=== PATIENT | female | born 1975 | race Caucasian/White ===

== ENCOUNTER 2019-09-13 11:08 | Day surgery (SDC) | payer SELFPAY ==
[2019-09-13 11:24] VITALS: BMI 30.9
[2019-09-13] MEDS ORDERED: hydrALAZINE 20 MG/ML VIAL SLOW IVP PRN (11:49)
--- NOTE | 2019-09-13 12:28 | PDOC.FPROB ---
FMR OB H&P: HPI - History of Present Illness Chief Complaint: elevated BP's History of Present Illness: 43 y/o @ 36.4 wks dated by 9.4 week sono c/w LMP. Presents to L&D from [facility] for elevated BP reading of 142/80. Pt had a 137/90 BP last night. She brings her BP log and her BP's have been 100-110's/70's. Pt denies FLOYD, abd pain, scotomas, CP, palpitations. States she has edema in her feet worse at night. + FM Denies LOF, vag bleeding and vag discharge. Primary Care Physician: Dr. Clay at [facility]. FMR OB H&P: Current - Care : 5 Para: 4 Gestational age: 36.4 Due date: 10/07/19 Dating Criteria: 9.4 wk sono c/w LMP Course/Complications: cHTN JAY-I exposure in 1st Trimester Advanced maternal age anemia of Hadlock 91%, EFW 2794 g - OB Labs Blood type: O RH: positive Antibody Screen: negative HIV: negative RPR: negative HepBsAg: negative Rubella: immune Urine drug screen: not done Gonorrhea: negative Chlamydia: negative Pap Smear: NILM 11/2016 1 hour gtt: 130 3 hour GTT: 134, 122 A1c: 5.2% GBS: unknown H&H: 11.6/33.8 on 08/23/19 Additional labs: Progenity on 04/15/20: Normal. - First Trimester Ultrasound First trimester: 9.4 wk dating sono c/w LMP - Anatomy Survey Anatomy survey: 05/25 S>D, unable to rule out trisomy Repeated on 07/08 hadlock of 89.1%, posterior placenta. - Additional Ultrasound Additional: 08/05: EFW 96.8% 08/25: concern for LGA, hadlock 91%, BPP 8/. 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 - Family History Family History: HTN denies congenital problems. FMR OB H&P: Medications - Current Home Medications: Medication Instructions Recorded Confirmed Type Vitamin 1 tab PO DAILY 10/24/16 10/24/16 History Ferrous Sulfate [Iron] 325 mg PO 09/13/19 History Allergies/Adverse Reactions: Allergies Allergy/AdvReac Type Severity Reaction Status Date / Time No Known Allergies Allergy Verified 09/13/19 11:17 FMR OB H&P: ROS - Review of Systems General: denies: fever/chills, weight/appetite/sleep changes Eyes: denies: vision changes, double vision, scotomas, floaters ENT: denies: nasal congestion, sore throat Cardiovascular: reports: edema (feet at night.). denies: chest pain, palpitation Respiratory: denies: cough, shortness of breath Gastrointestinal: denies: abdominal pain, cramping, nausea, vomiting, diarrhea Genitourinary (Female): denies: dysuria, vaginal discharge, vaginal pain, vaginal bleeding, contractions Musculoskeletal: denies: pain Neurologic: denies: numbness, syncope, seizures, headache Integumentary: denies: rash Hematologic/Lymphatic: denies: prolonged or excessive bleeding, enlarged lymph nodes FMR OB H&P: Vital Signs - Maternal Vital signs: BP 118/72 HR 90 FHT's 130 baseline and reactive. No ctx on toco. - Heart Tones Baseline: 130 (Nursing staff notified to call with any concerns or changes in the strip. ) Variability: moderate Acceleration: present (several 15 X 15 observed.) [place] contractions every: none FMR OB H&P: Physical Exam - Physical Exam General: NAD, awake, alert and oriented HEENT: normocephalic and atraumatic, PERRLA, EOMI, MMM, conjunctiva clear, no scleral icterus, grossly normal vision, grossly normal hearing, oropharynx clear , good dention Neck: supple, FROM, trachea midline, no LAD, no JVD Chest: non-tender to palpation, no lesions Breast: symmetric Heart: RRR, normal S1/S2, no murmurs/rubs/gallops, pulses present, no edema General: CTAB, no respiratory distress, good air movement, no rales/rhonchi, no wheezing, no retractions Abdomen: soft, gravid, non-tender, bowel sound present, no masses, no hernias Musculoskeletal: normal gait and station, pulses present, no misalignment/ asymmetry, no atrophy Neurological: cranial nerves II through XII intact, sensation to pain,touch and proprioception grossly normal, no clonus, no tremor, no focal deficit Skin: no rash, good tugor, capillary refill <2 seconds, no jaundice Lymphatic: no unusual bruising or bleeding, no purpura, no petechia, no LAD Psychiatric: intact recent and remote memory, good judgement and insight, normal mood and affect - Pelvic Exam Vulva: normal hair distribution, appropriate saroj stage Estimated Weight: other (2794 g on 08/26/19) FMR OB H&P: A/P - Problem List (1) Normal intrauterine in third trimester Current Visit: Yes Status: Acute Code(s): Z34.93 - ENCNTR FOR SUPRVSN OF NORMAL PREG, UNSP, THIRD TRIMESTER (2) Chronic hypertension Current Visit: Yes Status: Acute Code(s): I10 - ESSENTIAL (PRIMARY) HYPERTENSION (3) Anemia affecting Current Visit: Yes Status: Acute Code(s): O99.019 - ANEMIA COMPLICATING , UNSPECIFIED TRIMESTER (4) Advanced maternal age (AMA), 40 years or greater Current Visit: Yes Status: Acute Code(s): [id number] - Discussion: Date/Time: 09/13/19 1226 43 y/o , @ 36.4 wks dated by 9.4 wk sono c/w LMP, presents to L&D for elevated BP's. 1. IUP @ 36.4 wks - due for testing today. Ordered BPP and NST - monitoring has been baseline FHT's 130, with 15X15 reactivity present. - Nursings staff agreeable to notifying MD with any abnormalities and concern. - Blood type O+, AB -. - GBS unknown. 2. cHTN, rule out Pre-E - elevated BP readings at home and PNC. - Ordered Urine Protein and urine creatinine - Ordered CBC, CMP - Q15 min BP readings. 3. Anemia of - CBC ordered - H/H on 08/22, 11.6/33.8 4. JAY-I exposure in 1st trimester - Anatomy scans have been normal anatomy 5. FHx of HTN - PRE-E labs and BP monitoring 6. Hadlock 91% - EFW on 08/25, 2794 g. - repeat BPP today with EFW. BPP 01/21 today. 7. Advanced Maternal Age - Progenity screen was normal on 04/15/20. This H&P was discussed with Dr. Castro and Dr. Beaulieu who agree with the above documentation and plan. Addendum - Attending - Attending Attestation Date/Time: 09/13/19 4771 I personally evaluated the patient and discussed the management with Dr. Palma and team. I agree with the History, Examination, Assessment and Plan documented above with any addition or exceptions noted below. Patient well known to me from clinic. She is feeling great, +FM. Her pressures have all been markedly less than 140/90. BPP 03/25. Labs all reassuring. GBS collected in clinic today. Plan for dc with return precautions in detail.
[2019-09-13 12:30] LABS: #Lymphocytes 1.8 thou/uL (1.20-3.40); #Monocytes 0.4 thou/uL (0.11-0.59); #Neutrophils 5.9 thou/uL (1.40-6.50); %Basophils 0.5 % (0.0-1.0); %Eosinophils 0.3 % (0.0-10.0); %Lymphocytes 21.5 % (21.0-51.0); %Monocytes 4.5 % (0.0-10.0); %Neutrophils 73.1 % (42.0-75.0); Mean Corpuscular HGB CONC 34.8 g/dL (32.0-36.0); Mean Corpuscular Hemoglobin 31.8 pg (27.0-31.0); Mean Corpuscular Volume 91.5 fL (78.0-98.0); Mean Platelet Volume 7.9 fL (7.4-10.4); Platelet Count 157 thou/uL (130-400); RBC Distribution Width 12.3 % (11.5-14.5); Red Blood Cell (RBC) Count 3.76 mill/uL (4.20-5.40); White Blood Cell (WBC) Count 8.1 thou/uL (4.8-10.8)
[2019-09-13 12:50] LABS: Creatinine, Urine Less than 20.00 mg/dL (47-110); Protein, Urine Random Quant Less than 10 mg/dL (1-14)
[2019-09-13 12:53] LABS: ALT (SGPT) 10 U/L (8-55); AST (SGOT) 16 U/L (5-34); Albumin 3.6 g/dL (3.5-5.0); Alkaline Phosphatase 111 U/L (40-110); Anion Gap 13 mmol/L (10-20); BUN (Urea Nitrogen) 7 mg/dL (7.0-18.7); Bilirubin, Total 0.6 mg/dL (0.2-1.2); Calc. Creatinine Clearance 170 mL/min (70-130); Calcium 9.1 mg/dL (7.8-10.44); Carbon Dioxide 21 mmol/L (22-29); Chloride 106 mmol/L (98-107); Estimated GFR-MDRD Greater than 90; Globulin 3.5 g/dL (2.4-3.5); Glucose 73 mg/dL (70-105); Protein, Total 7.1 g/dL (6.0-8.3); Sodium 136 mmol/L (136-145)
--- NOTE | 2019-09-13 13:03 | ULT ---
ULTRASOUND BIOPHYSICAL PROFILE: HISTORY: distress, hypertension FINDINGS: A single live intrauterine gestation is seen. heart rate:116bpm YUDI: 13.8 cm Placenta: Posterior without placenta previa OB biophysical profile: tone: 2 breathin movements: 2 Amniotic fluid: 2 IMPRESSION: The ultrasound biophysical profile score is 8 out of 8.
--- NOTE | 2019-09-13 13:40 | PDOC.BPN ---
- Brief Progress Note BP's within normal limits. BPP 8/8. cardiac monitoring Reactive with multiple 15X15's. Urine pro <10 Urine cr <20 Plt 157
--- NOTE | 2019-09-13 14:20 | PDOC.BPN ---
<Chikis Palma - Last Filed: 09/13/19 14:16> - Brief Progress Note Prolonged decel occurred approximately 13:30. BPP 8/8, with NST reactive. This gives a 06/999 risk of morbidity/mortality to fetus in one week. Recommended to f/u with [facility] for weekly testing/BPP until delivery. Pt to be scheduled at 39 weeks for induction due to cHTN. BP's have been normal during time observed at L&D. Pt understands return precautions of FLOYD, abd pain, increased BP >140/90, and LOF , Ctx, vag bleeding. Plans of care discussed with Dr. Castro, who is in agreement of stated discharge plan. <Ayad Castro - Last Filed: 09/15/19 10:12> Addendum - Attending - Attending Attestation Date/Time: 09/15/19 1012 I personally evaluated the patient and discussed the management with Dr. Palma. I agree with the History, Examination, Assessment and Plan documented above with any addition or exceptions noted below. <06/999. No evidence at all of hypertensive disease during prolonged monitoring.
== END 2019-09-13 14:26 | disposition home or self-care (01) ==
LOC: L&D/OP 11:08
PROVIDERS: ATTEND Emergency Medicine
DX: O10.913 Unspecified pre-existing hypertension complicating pregnancy, third trimester (principal); O09.523 Supervision of elderly multigravida, third trimester; O99.013 Anemia complicating pregnancy, third trimester; D64.9 Anemia, unspecified; Z3A.36 36 weeks gestation of pregnancy; Z79.899 Other long term (current) drug therapy
CPT/HCPCS: 36415; 76819; 80053; 82570; 84156; 85025; 99283

== ENCOUNTER 2019-09-23 12:37 | Day surgery (SDC) | payer SELFPAY ==
[2019-09-23 12:48] VITALS: BMI 32.4
--- NOTE | 2019-09-23 13:38 | PDOC.FPROB ---
FMR OB H&P: HPI - History of Present Illness Chief Complaint: Elevated BP Indentification: at 38W EGA by 9.4W US, c/w LMP History of Present Illness: Patient is a 43 y/o female at 38.4W EGA by 9.4W US, which was c /w LMP, who presents to L&D from clinic after she recorded two elevated BPs. Per her provider, she recorded to BPs of 140/82 and 148/85, although a third BP was measured at 132/83. An SVE performed at the time was reported as 1/Thick High (Posterior), and an NST performed prior to arrival was reactive. Her as been complicated by concern of LGA, with her most recent imaging revealing an EFW of 2794g and a HADLOCK of 91%. She has had adequate care up until this point, and with the exception of testing GBS(+), all other lab results have been negative. At this time she denies any worrisome symptoms such as fevers, chills, N/V/C, FLOYD , visual disturbances, floaters, loss of vision, seizures, RUQ pain, peripheral edema, loss of fluids, loss of movement, or persistent contractions. She denies any known sick contacts or COVID-19(+) contacts, and she has had no recent travel. Patient is Upper Sorbian-speaking only and her son, who was at bedside at the time of evaluation, assisted with much of the interpretation. 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 denies: fever/chills, recent trauma Eyes: denies: vision changes, scotomas, floaters ENT: denies: rhinorrhea, frequent nose bleed, ear pain Cardiovascular: denies: chest pain Respiratory: denies: cough Gastrointestinal: reports: diarrhea (Patient reports 1 episode of diarrhea on 09/23/19). denies: abdominal pain, cramping, nausea, vomiting, constipation, bright red blood Genitourinary (Female): denies: dysuria, hematuria, polyuria, vaginal discharge , vaginal pain, vaginal bleeding, vaginal mass/sore, contractions, vaginal pressure Musculoskeletal: reports: stiffness, arthritis/arthralgias. denies: pain Neurologic: denies: seizures, headache Integumentary: denies: itching, rash, lesions Psychological: denies: depression, anxiety FMR OB H&P: Vital Signs - Maternal Vital signs: HR [69] BP [130/60] RR [--] O2%Sat [--] T[--] Note: Most elevated BP since admission to L&D was 137/78. - Heart Tones Baseline: 120 Variability: moderate Acceleration: present Deceleration: absent Category: category 1 [place] contractions every: 1 CTX noted since Admission FMR OB H&P: Physical Exam - Physical Exam General: NAD, awake, alert and oriented HEENT: normocephalic and atraumatic, PERRLA, EOMI, MMM, conjunctiva clear, no scleral icterus, grossly normal vision, grossly normal hearing, normal nasal mucosa, oropharynx clear, good dention Neck: supple, FROM, trachea midline, no LAD Chest: non-tender to palpation, no lesions Breast: symmetric Heart: RRR, normal S1/S2, no murmurs/rubs/gallops, pulses present, no edema General: CTAB, no respiratory distress, good air movement, no rales/rhonchi, no wheezing, no retractions Abdomen: gravid, non-tender Musculoskeletal: pulses present, FROM in all four extremities, no misalignment/ asymmetry, no atrophy Neurological: sensation to pain,touch and proprioception grossly normal Skin: no rash, capillary refill <2 seconds, no jaundice Lymphatic: no unusual bruising or bleeding, no purpura, no petechia, no LAD Psychiatric: intact recent and remote memory, good judgement and insight, normal mood and affect FMR OB H&P: A/P - Problem List (1) Elevated blood pressure affecting in third trimester, antepartum Current Visit: Yes Status: Acute Code(s): O16.3 - UNSPECIFIED MATERNAL HYPERTENSION, THIRD TRIMESTER (2) Advanced maternal age (AMA), 40 years or greater Current Visit: No Status: Chronic Code(s): [id number] - (3) Chronic hypertension Current Visit: No Status: Chronic Code(s): I10 - ESSENTIAL (PRIMARY) HYPERTENSION (4) Normal intrauterine in third trimester Current Visit: No Status: Acute Code(s): Z34.93 - ENCNTR FOR SUPRVSN OF NORMAL PREG, UNSP, THIRD TRIMESTER (5) Term Current Visit: No Status: Acute Code(s): Z34.80 - ENCOUNTER FOR SUPRVSN OF NORMAL , UNSP TRIMESTER Disposition: Patient is a 43 y/o at 38W EGA by 9.4W US c/w LMP who presents to L&D after multiple elevated BP readings in clinic. 1. Elevated BP, 3rd Trimest of -Patient recorded 2 elevated BPs in clinic and has subsequently been sent over for additional work-up -ROS negative w/o worrisome symptoms such as FLOYD, visual disturbances, RUQ pain or peripheral edema -Physical Exam unremarkable -Maternal VSS w/o elevated BP readings since admission to L&D -1 contraction noted on monitor - patient denies loss of fluid, loss of movement, or additional contractions -FHTs in the 120s w/ accelerations present, no decels present -Hemagram: Pending -CMP: Pending -Urine Protein: Pending -Urine Creatinine: Pending 2. cHTN -Patient had previously been taking ACEi prior to discovering she was -PNC recommended ASA use until delivery - patient not currently taking ASA as prescribed -Review of BP log demonstrated no elevated BPs in past 30 days -See #1 3. AMA -Progenity Screen (04/15/19): WNL -Will order BPP and Growth US at this time -NST performed in clinic was reported as reactive. 4. LGA, Suspected -Per chart review, multiple imaging reports have demonstrated a HADLOCK > 90% -Will alter plan accordingly if IOL is indicated 5. GBS Positive -Will ensure adequate prophylaxis if IOL is indicated 6. ACEi Exposure during 1st Trimester of -Multiple imaging reports have demonstrated no gross abnormalities -Continue to monitor PCP: [facility] - Dr. Jocelyn Clay Dispo: Patient is currently stable on L&D for evaluation of elevated blood BP - r/o Pre-Eclampsia. Await lab and imaging results as per above and tailor plan of care as indicated. Discussion: Date/Time: 09/23/19 4843 This H&P was discussed with [] and [] who agree with the above documentation and plan. Addendum - Attending - Attending Attestation Date/Time: 09/23/19 1694 I personally evaluated the patient and discussed the management with Dr. Ricketts I agree with the History, Examination, Assessment and Plan documented above with any addition or exceptions noted below - 43 yo @38 0/7 weeks with h/o cHTN sent from clinic due to elevated BP. Denies any FLOYD, visual changes, ctx , LOF. VB. (+) FM. Afebrile VSS BP 100-135/70-80s. CMP, hemagram, and urine Pr/ Cr ratio normal. Category 1 FHTs. A/P: 1) IUP@38 0/7 weeks with cHTN - no evidence of superimposed pre-eclampsia. Normal growth and YUDI. D/C home with precautions. Patient scheduled for induction on September 24 at 7:15PM
[2019-09-23] MEDS ORDERED: hydrALAZINE 20 MG/ML VIAL SLOW IVP PRN (13:39)
[2019-09-23 14:06] LABS: Hemoglobin 12.1 g/dL (12.0-16.0); Mean Corpuscular HGB CONC 34.8 g/dL (32.0-36.0); Mean Corpuscular Hemoglobin 31.9 pg (27.0-31.0); Mean Corpuscular Volume 91.9 fL (78.0-98.0); Mean Platelet Volume 7.8 fL (7.4-10.4); Platelet Count 156 thou/uL (130-400); RBC Distribution Width 12.4 % (11.5-14.5); Red Blood Cell (RBC) Count 3.78 mill/uL (4.20-5.40)
[2019-09-23 14:26] LABS: ALT (SGPT) 8 U/L (8-55); AST (SGOT) 14 U/L (5-34); Albumin 3.6 g/dL (3.5-5.0); Alkaline Phosphatase 124 U/L (40-110); Anion Gap 13 mmol/L (10-20); BUN (Urea Nitrogen) 10 mg/dL (7.0-18.7); Bilirubin, Total 0.6 mg/dL (0.2-1.2); Calc. Creatinine Clearance 167 mL/min (70-130); Calcium 9.2 mg/dL (7.8-10.44); Carbon Dioxide 21 mmol/L (22-29); Chloride 106 mmol/L (98-107); Estimated GFR-MDRD Greater than 90; Globulin 3.5 g/dL (2.4-3.5); Glucose 93 mg/dL (70-105); Potassium 3.6 mmol/L (3.5-5.1); Protein, Total 7.1 g/dL (6.0-8.3); Sodium 136 mmol/L (136-145)
--- NOTE | 2019-09-23 14:44 | ULT ---
Exam: Nonstress biophysical profile HISTORY: Hypertension. COMPARISON: None. TECHNIQUE: Nonstress biophysical profile was performed. FINDINGS: position: Vertex heart tones: 125 bpm Amniotic fluid index: 12.9 cm Biometry: BPD 9.75 cm, 39 weeks 6 days Head circumference 34.50 cm, 39 weeks 6 days Abdominal circumference 35.01 cm, 38 weeks 6 days Femur length 7.13 cm, 36 weeks 4 days position: Vertex. Placental location: Posterior. Nonstress biophysical profile: tone 2 breathing 2 movement 2 Amniotic fluid 2 Total score 8 out of 8 IMPRESSION: Nonstress biophysical profile total score is 8 out of 8. Transcribed Date/Time: 09/23/2019 2:59 PM
== END 2019-09-23 15:37 | disposition home or self-care (01) ==
LOC: L&D/OP 12:37
PROVIDERS: ATTEND Family Medicine
DX: O09.523 Supervision of elderly multigravida, third trimester (principal); O16.3 Unspecified maternal hypertension, third trimester; Z3A.38 38 weeks gestation of pregnancy
CPT/HCPCS: 36415; 76815; 76819; 80053; 82570; 84156; 85027

== ENCOUNTER 2019-09-25 19:15 | Inpatient (IN) | payer MEDICAID, OTHER, SELFPAY ==
[~2019-09-25 19:15] MED LIST: Bupivacaine/Epinephrine 0.25% 30 ML VIAL ONE
[2019-09-25] MEDS ORDERED: Lidocaine 1% (PF) 30 ML VIAL SC PRN (19:38)
[2019-09-25] MEDS ORDERED: Ondansetron PF 4 MG/2 ML Vial IVP PRN (19:38)
[2019-09-25] MEDS ORDERED: Promethazine HCl 25 MG/ML VIAL IM PRN (19:38)
[2019-09-25] MEDS ORDERED: NS / Oxytocin 40 units/1000ml 1,000 ML IV PRN (19:38)
[2019-09-25] MEDS ORDERED: hydrALAZINE 20 MG/ML VIAL SLOW IVP PRN (19:38)
--- NOTE | 2019-09-25 19:42 | PDOC.FPROB ---
FMR OB H&P: HPI - History of Present Illness Chief Complaint: medically indicated IOL Indentification: at 38.2 wks by 9.2 wk sono History of Present Illness: 43 yo at 38.2 wks by 9.2 wk sono here for medically indicated IOL for cHTN. Endorses FM, denies VD/VD/LOF. Reports BP well controlled at home, lost shows BPs 110s/80s. Denies FLOYD, vision changes, chest pain, LE swelling. No other concerns at this time. Primary Care Physician: [facility]-Dr. 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: Denies - Surgical History Sx History: Denies - Social History Social History: Denies TAD - Family History Family History: HTN in family FMR OB H&P: Medications - Current Home Medications: Medication Instructions Recorded Confirmed Type Vitamin 1 tab PO DAILY 10/24/16 09/25/19 History Ferrous Sulfate [Iron] 325 mg PO DAILY 09/13/19 09/25/19 History Allergies/Adverse Reactions: Allergies Allergy/AdvReac Type Severity Reaction Status Date / Time No Known Allergies Allergy Verified 09/13/19 11:17 FMR OB H&P: ROS - Review of Systems General: denies: fever/chills, weight/appetite/sleep changes ENT: denies: nasal congestion, rhinorrhea, ear pain Cardiovascular: denies: chest pain, palpitation Respiratory: denies: cough, congestion, shortness of breath Gastrointestinal: denies: abdominal pain, indigestion, cramping, nausea Genitourinary (Female): denies: vaginal pain, vaginal bleeding, vaginal pressure Musculoskeletal: denies: pain, stiffness Neurologic: denies: seizures, weakness Endocrine: denies: cold intolerance, heat intolerance Psychological: denies: depression, anxiety FMR OB H&P: Vital Signs - Maternal Vital signs: BPs all within normal limits - Heart Tones Baseline: 130 Variability: moderate Acceleration: present Deceleration: absent Category: category 1 [place] contractions every: 2-4min FMR OB H&P: Physical Exam - Physical Exam General: NAD, awake, alert and oriented HEENT: normocephalic and atraumatic, EOMI, MMM, conjunctiva clear, no scleral icterus, grossly normal hearing, good dention Neck: supple, FROM, trachea midline General: no respiratory distress, good air movement Abdomen: soft, gravid, non-tender Musculoskeletal: pulses present, FROM in all four extremities Neurological: cranial nerves II through XII intact Skin: capillary refill <2 seconds Lymphatic: no unusual bruising or bleeding, no purpura Psychiatric: intact recent and remote memory, good judgement and insight - Pelvic Exam Vulva: normal hair distribution SVE: 370/-2 Chua score: 7 Presentation: Vertex FMR OB H&P: A/P - Problem List (1) Anemia affecting Status: Acute Code(s): O99.019 - ANEMIA COMPLICATING , UNSPECIFIED TRIMESTER (2) Elevated blood pressure affecting in third trimester, antepartum Status: Acute Code(s): O16.3 - UNSPECIFIED MATERNAL HYPERTENSION, THIRD TRIMESTER (3) Advanced maternal age (AMA), 40 years or greater Status: Chronic Code(s): [id number] - (4) Chronic hypertension Status: Chronic Code(s): I10 - ESSENTIAL (PRIMARY) HYPERTENSION Discussion: Date/Time: 09/25/191939 PCP: Pavithra History: OB hx: AMA, cHTN, JAY-I exposure first trimester PMH: HTN PSH: neg Meds: PNV All: NKDA Soc Hx: denies smoking, alcohol, drugs Fam Hx: denies downs, congenital defects GBS: + Blood type: O+ Ab screen: neg HIV: neg RPR: neg Hep B: neg Rubella: immune NIPT: neg GC/CT: neg REVIEW OF SYSTEMS: Gen: no fever, chills, or sweats Neuro: no numbness/tingling, no weakness, denies headache ENT: denies congestion Eyes: no visual changes Resp: denies cough, no production, no SOB, no wheeze Card: denies chest pain, no palpitations GI: denies nausea, vomiting, diarrhea : no dysuria, no hematuria Skin: no rash, no erythema Psych: denies hx anxiety/depression Vitals: T: 98.5 R: 18 BP: 123/84 P:67 at: 98% on RA PHYSICAL EXAMINATION: General: NAD, alert and oriented x3 HEENT: EOMI, normal sclera Neck: Supple. Full ROM. Heart/Cardiovascular System: RRR, Cap refill < 3 seconds, no rub, no murmur Lungs/Respiratory System: clear to auscultation bilaterally. No increased work of breathing. Room air. Abdomen/Gastro-Intestinal System: no abdominal tenderness, normal bowel sounds, Gravid Extremities: Warm extremities. No cyanosis or edema. Neuro: No gross deficits appreciated Psychiatry: Awake, Alert and cooperative with exam Skin: no lesions, no rashes Musculoskeletal: Full ROM A/P: This is a 43 yo 38w here for induction 2/2 cHTN # - SVE: /-2, Chua 7 - After adequate dosing of PCN will start pitocin - Recheck in 4 hours - FHT: Cat I, intermittent CTX - Vertex on bedside sono #GBS+ -PCN ppx # cHTN -No meds, monitor BP # LGA -91% at 34 wks # AMA -NIPT neg # Anemia of Addendum - Attending - Attending Attestation Date/Time: 09/25/192102 I personally evaluated the patient and discussed the management with Dr. Hampton I agree with the History, Examination, Assessment and Plan documented above with any addition or exceptions noted below. IOL for cHTN and AMA. Pit after GBS x2 dose.
[2019-09-25] MEDS ORDERED: Penicillin G Potassium 5 MILL.UNITS in Sodium Chloride 0.9% 100 ML IVPB SCH (20:00)
[2019-09-25 20:02] VITALS: BMI 31.9
[2019-09-25 20:25] LABS: Mean Corpuscular HGB CONC 36.2 g/dL (32.0-36.0); Mean Corpuscular Hemoglobin 33.3 pg (27.0-31.0); Mean Corpuscular Volume 92.2 fL (78.0-98.0); Mean Platelet Volume 8.5 fL (7.4-10.4); Platelet Count 138 thou/uL (130-400); RBC Distribution Width 12.3 % (11.5-14.5); Red Blood Cell (RBC) Count 3.58 mill/uL (4.20-5.40); White Blood Cell (WBC) Count 9.9 thou/uL (4.8-10.8)
[2019-09-25 21:07] LABS: Syphilis Antibody Nonreactive (Nonreactive); Syphilis Antibody Index 0.13 S/CO (<1.00 Non-Reactive)
[2019-09-25 23:41] LABS: HBSAg Index 0.18 S/CO (0-0.99); Hep B Surf Ag Non-Reactive S/CO (NonReactive)
[2019-09-26] MEDS: Lactated Ringer's 1,000 ML IV SCH ×2 (00:45→02:36)
[2019-09-26] MEDS: Penicillin G 2.5 MILL.units 2.5 MILL.UNITS in Premix Bag 1 BAG IVPB SCH ×3 (00:45→08:23)
[2019-09-26] MEDS ORDERED: Fentanyl 4 mcg/Bup 0.1% Cadd 100 ML ONE (02:00)
[2019-09-26] MEDS ORDERED: Fentanyl 4 mcg/Bupivacaine 0.1% Cassette 100 ML EPIDURAL SCH (02:15)
[2019-09-26] MEDS ORDERED: Ondansetron PF 4 MG/2 ML Vial IVP PRN (02:15)
[2019-09-26] MEDS ORDERED: Acetaminophen 325 MG TAB PO PRN (02:15)
[2019-09-26] MEDS ORDERED: EPHEDRINE 25 MG/5 ML SYRINGE SLOW IVP PRN (02:15)
[2019-09-26] MEDS ORDERED: Promethazine HCl 25 MG/ML VIAL IM PRN (02:15)
[2019-09-26] MEDS ORDERED: Naloxone HCl 0.4 mg/ml Vial IVP PRN ×2 (02:15)
[2019-09-26] MEDS ORDERED: Lactated Ringer's 500 ML IV PRN (02:15)
[2019-09-26] MEDS ORDERED: diphenhydrAMINE 50 MG/ML VIAL IVP PRN (02:15)
[2019-09-26] MEDS ORDERED: Communication Order-Pharmacy FS SCH (02:15)
--- NOTE | 2019-09-26 02:15 | PDOC.LDPN ---
Labor & Delivery Progress Note - Subjective Subjective: comfortable - Objective Vital signs reviewed and normal: yes - Assessment (1) Anemia affecting Code(s): O99.019 - ANEMIA COMPLICATING , UNSPECIFIED TRIMESTER Current Visit: No Status: Acute (2) Elevated blood pressure affecting in third trimester, antepartum Code(s): O16.3 - UNSPECIFIED MATERNAL HYPERTENSION, THIRD TRIMESTER Current Visit: No Status: Acute (3) Advanced maternal age (AMA), 40 years or greater Code(s): [id number] - Current Visit: No Status: Chronic (4) Chronic hypertension Code(s): I10 - ESSENTIAL (PRIMARY) HYPERTENSION Current Visit: No Status: Chronic -: This is a 43 yo 38w here for induction 2/2 cHTN # - SVE: /-2 @ 2011 - SVE /2 @ 0200 - FHT: Cat I, q5-6 ctx - baseline 110, good variability and accels #GBS+ -adequate ppx # cHTN -no severe range BPs # LGA -91% at 34 wks # AMA -NIPT neg # Anemia of
[2019-09-26] MEDS ORDERED: NS w/ Oxytocin 10 units 500 ML ONE (02:47)
[2019-09-26] MEDS ORDERED: NS w/ Oxytocin 10 units 500 ML IV SCH ×2 (03:00)
--- NOTE | 2019-09-26 03:14 | PDOC.BPN ---
- Brief Progress Note Patient with multiple elevated blood pressures, SBP 150s, 180. Patient denies FLOYD, RUQ pain, vision changes, new LE swelling. Discussed obtaining CBC, CMP, urine Pr/Cr to rule out preE. Patient in agreement with plan. Epidural in place , comfortable.
[2019-09-26 03:40] LABS: #Lymphocytes 2.7 thou/uL (1.20-3.40); #Monocytes 0.5 thou/uL (0.11-0.59); #Neutrophils 6.3 thou/uL (1.40-6.50); %Basophils 0.2 % (0.0-1.0); %Eosinophils 0.3 % (0.0-10.0); %Monocytes 5.2 % (0.0-10.0); %Neutrophils 66.3 % (42.0-75.0); Hemoglobin 11.3 g/dL (12.0-16.0); Mean Corpuscular HGB CONC 34.4 g/dL (32.0-36.0); Mean Corpuscular Hemoglobin 31.8 pg (27.0-31.0); Mean Corpuscular Volume 92.4 fL (78.0-98.0); Mean Platelet Volume 8.1 fL (7.4-10.4); Platelet Count 132 thou/uL (130-400); RBC Distribution Width 12.4 % (11.5-14.5); Red Blood Cell (RBC) Count 3.55 mill/uL (4.20-5.40); White Blood Cell (WBC) Count 9.5 thou/uL (4.8-10.8)
[2019-09-26 03:59] LABS: ALT (SGPT) 9 U/L (8-55); AST (SGOT) 15 U/L (5-34); Albumin 3.3 g/dL (3.5-5.0); Alkaline Phosphatase 119 U/L (40-110); Anion Gap 12 mmol/L (10-20); BUN (Urea Nitrogen) 9 mg/dL (7.0-18.7); Bilirubin, Total 0.5 mg/dL (0.2-1.2); Calc. Creatinine Clearance 179 mL/min (70-130); Calcium 8.9 mg/dL (7.8-10.44); Carbon Dioxide 21 mmol/L (22-29); Chloride 107 mmol/L (98-107); Estimated GFR-MDRD Greater than 90; Globulin 3.1 g/dL (2.4-3.5); Glucose 78 mg/dL (70-105); Potassium 3.4 mmol/L (3.5-5.1); Protein, Total 6.4 g/dL (6.0-8.3); Sodium 137 mmol/L (136-145)
[2019-09-26 04:05] LABS: Protein, Urine Random Quant Less than 10 mg/dL (1-14)
--- NOTE | 2019-09-26 05:19 | PDOC.LDPN ---
Labor & Delivery Progress Note - Subjective Subjective: comfortable - Objective Vital signs reviewed and normal: yes Abnormal vital signs: SBP 130/140's General: NAD SVE: /-2 Plan: continue plan of care -: This is a 43 yo 38w here for induction 07/18 cHTN # - SVE: /-2 @ 2011 - SVE /-2 @ 020 - SVE 2 @ 0500 - will consider artificial rupture of membranes - FHT: Cat I, q5-6 ctx - baseline 110, good variabillity, accels #GBS+ -adequate ppx # cHTN - 1 severe range pressure - Pre-E labs negative # LGA -91% at 34 wks # AMA -NIPT neg # Anemia of Dispo: continue current plan of care and will consider AROM
--- NOTE | 2019-09-26 08:15 | PDOC.OBLPN ---
FMR OB Labor PN: Obj - Maternal Vital signs: BP: [] HR: [] RR: [] Tmax: [] Pox: []% on [] Wt: [] FMR OB Labor PN: Data - Labs Lab results: Laboratory Results - last 24 hr 09/25/19 09/25/19 09/25/19 20:16 20:16 20:16 WBC RBC Hgb Hct MCV MCH MCHC RDW Plt Count MPV Neutrophils % Lymphocytes % Monocytes % Eosinophils % Basophils % Neutrophils # Lymphocytes # Monocytes # Eosinophils # Basophils # Sodium Potassium Chloride Carbon Dioxide Anion Gap BUN Creatinine Estimated GFR (MDRD) Glucose Calcium Total Bilirubin AST ALT Alkaline Phosphatase Serum Total Protein Albumin Globulin Albumin/Globulin Ratio U Random Total Protein Urine Creatinine Syphilis IgG/IgM Ab Nonreactive Hep Bs Antigen Non-Reactive Blood Type O POSITIVE Antibody Screen NEGATIVE 09/25/19 09/26/19 09/26/19 20:16 03:22 03:22 WBC 9.9 9.5 RBC 3.58 L 3.55 L Hgb 12.0 11.3 L Hct 33.0 L 32.8 L MCV 92.2 92.4 MCH 33.3 H 31.8 H MCHC 36.2 H 34.4 RDW 12.3 12.4 Plt Count 138 132 MPV 8.5 8.1 Neutrophils % 66.3 Lymphocytes % 28.0 Monocytes % 5.2 Eosinophils % 0.3 Basophils % 0.2 Neutrophils # 6.3 Lymphocytes # 2.7 Monocytes # 0.5 Eosinophils # 0.0 Basophils # 0.0 Sodium 137 Potassium 3.4 L Chloride 107 Carbon Dioxide 21 L Anion Gap 12 BUN 9 Creatinine 0.57 L Estimated GFR (MDRD) Greater than 90 Glucose 78 Calcium 8.9 Total Bilirubin 0.5 AST 15 ALT 9 Alkaline Phosphatase 119 H Serum Total Protein 6.4 Albumin 3.3 L Globulin 3.1 Albumin/Globulin Ratio 1.1 L U Random Total Protein Urine Creatinine Syphilis IgG/IgM Ab Hep Bs Antigen Blood Type Antibody Screen 09/26/19 03:37 WBC RBC Hgb Hct MCV MCH MCHC RDW Plt Count MPV Neutrophils % Lymphocytes % Monocytes % Eosinophils % Basophils % Neutrophils # Lymphocytes # Monocytes # Eosinophils # Basophils # Sodium Potassium Chloride Carbon Dioxide Anion Gap BUN Creatinine Estimated GFR (MDRD) Glucose Calcium Total Bilirubin AST ALT Alkaline Phosphatase Serum Total Protein Albumin Globulin Albumin/Globulin Ratio U Random Total Protein Less than 10 Urine Creatinine 20.80 L Syphilis IgG/IgM Ab Hep Bs Antigen Blood Type Antibody Screen FMR OB Labor PN: A/P Discussion: Date/Time: 09/26/19 4855 This H&P was discussed with [] and [] who agree with the above documentation and plan.
--- NOTE | 2019-09-26 08:17 | PDOC.LDPN ---
Labor & Delivery Progress Note - Subjective Subjective: comfortable, no concerns - Objective Vital signs reviewed and normal: yes General: NAD, resting Uterine fundus: non tender SVE: 0700 Dilation: 6 Effacement: 75% Station: -2 FHT: category 1, variability present, absent or minimal variables [place] contractions every: Q2M Other exam findings: Large amount of clear fluid noted on bedding, no blood or meconium noted - Assessment (1) Anemia affecting Code(s): O99.019 - ANEMIA COMPLICATING , UNSPECIFIED TRIMESTER Current Visit: No Status: Acute (2) Normal intrauterine in third trimester Code(s): Z34.93 - ENCNTR FOR SUPRVSN OF NORMAL PREG, UNSP, THIRD TRIMESTER Current Visit: No Status: Acute (3) Advanced maternal age (AMA), 40 years or greater Code(s): [id number] - Current Visit: No Status: Chronic (4) Chronic hypertension Code(s): I10 - ESSENTIAL (PRIMARY) HYPERTENSION Current Visit: No Status: Chronic Plan: continue plan of care, pitocin for augmentation (Pitocin decreased from 10 to 8 due to tachysystole) -: Patient is a 43 y/o at 38W EGA by 9.4W US c/w LMP admitted to L&D for mIOL 2/2 cHTN. 1. SIUP, Active Labor -Patient appears stable and in no immediate cardiopulmonary distress -2 elevated SBPs in the high 150s and low 160s - will administer Hydralazine 5 mg IV at this time -FHTs n the 130s with moderate variability, several acels present and no decels -CTX Q1-2M - will decrease Pitocin to 8 -SVE (2014): 3/70/-2 -SVE (0200): 4/75/-2 -SVE (0500): 5/75/-2 -SVE (0700): 6/75/-2 - suspect SROM -LR @ 125 ml/hr -Pain adequately controlled w/ epidural -Will plan for Q2H SVEs 2. Elevated BP, 3rd Trimest of -Patient recorded 2 elevated BPs in clinic several days prior to arrival -Physical Exam unremarkable -Pre-Eclampsia lab work-up WNL -s/p Hydralazine 5 mg IV -All BPs since Hydralazine administration have been at goal - continue to monitor 3. cHTN -See #1 4. LGA, Suspected -Per chart review, multiple imaging reports have demonstrated a HADLOCK > 90% 5. GBS Positive -s/p 4 doses of Penicillin G - most recent dose administered at ~0800 6. AMA -Progenity Screen (04/15/19): [facility]RE PCP: [facility] - Dr. Jocelyn Clay Dispo: Patient is currently stable on L&D for evaluation of elevated blood BP - r/o Pre-Eclampsia. Await lab and imaging results as per above and tailor plan of care as indicated.
--- NOTE | 2019-09-26 09:24 | PDOC.LDPN ---
Labor & Delivery Progress Note - Subjective Subjective: comfortable, vaginal pressure, no concerns - Assessment (1) Anemia affecting Code(s): O99.019 - ANEMIA COMPLICATING , UNSPECIFIED TRIMESTER Current Visit: No Status: Acute (2) Normal intrauterine in third trimester Code(s): Z34.93 - ENCNTR FOR SUPRVSN OF NORMAL PREG, UNSP, THIRD TRIMESTER Current Visit: No Status: Acute (3) Advanced maternal age (AMA), 40 years or greater Code(s): [id number] - Current Visit: No Status: Chronic (4) Chronic hypertension Code(s): I10 - ESSENTIAL (PRIMARY) HYPERTENSION Current Visit: No Status: Chronic
[2019-09-26] MEDS ORDERED: hydrALAZINE 20 MG/ML VIAL SLOW IVP PRN (09:27)
[2019-09-26] MEDS ORDERED: Calcium Gluc 4.6 MEQ/10 ML (100 MG/ML) SLOW IVP PRN (09:28)
[2019-09-26] MEDS ORDERED: Magnesium Sulfate 20 gm/500 ml 20 GM/500 ML BAG ONE (09:30)
[2019-09-26] MEDS ORDERED: Magnesium Sulfate 20 GM/WATER 500 ML BAG IVPB SCH (09:30)
[2019-09-26] MEDS ORDERED: hydrALAZINE 20 MG/ML VIAL SLOW IVP SCH (09:30)
--- NOTE | 2019-09-26 09:47 | PDOC.LDPN ---
Labor & Delivery Progress Note - Subjective Subjective: comfortable, vaginal pressure - Objective Abnormal vital signs: Multiple SBPs > 160 mmHg - highest in the 190s General: NAD, resting Uterine fundus: palpable contractions SVE: 0915 Dilation: 10 Effacement: 100% Station: 1+ FHT: category 1, variability present [place] contractions every: Q2-3M - Assessment (1) Anemia affecting Code(s): O99.019 - ANEMIA COMPLICATING , UNSPECIFIED TRIMESTER Current Visit: No Status: Acute (2) Normal intrauterine in third trimester Code(s): Z34.93 - ENCNTR FOR SUPRVSN OF NORMAL PREG, UNSP, THIRD TRIMESTER Current Visit: No Status: Acute (3) Advanced maternal age (AMA), 40 years or greater Code(s): [id number] - Current Visit: No Status: Chronic (4) Chronic hypertension Code(s): I10 - ESSENTIAL (PRIMARY) HYPERTENSION Current Visit: No Status: Chronic Plan: continue plan of care, pitocin for augmentation, other (See A/P) -: Patient is a 43 y/o at 38W EGA by 9.4W US c/w LMP admitted to L&D for mIOL 2/2 cHTN. 1. SIUP, Active Labor -Patient appears stable and in no immediate cardiopulmonary distress -2 additional elevated SBPs - highest 190 mmHg - will administer additional Hydralazine 5 mg IV and initiate Mg Protocol at this time -FHTs in the 130s with moderate variability, several acels present and no decels noted -CTX Q2-3M - Pitocin at 8 -SVE (2014): 3/70/-2 -SVE (0200): 4/75/-2 -SVE (0500): 5/75/-2 -SVE (0700): 6/75/-2 - suspect SROM -SVE (0915): 10/100/+1 -LR @ 125 ml/hr -Pain adequately controlled w/ epidural 2. Elevated BP, 3rd Trimest of -Patient recorded 2 elevated BPs in clinic several days prior to arrival -Physical Exam unremarkable -Pre-Eclampsia lab work-up WNL -Additional elevated SBPs noted since admission, several > 160 mmHg -s/p Hydralazine 5 mg IV x2 - will initiate Mg Protocol -Initiate Q2H Neuro Checks following delivery 3. cHTN -See #1 4. LGA, Suspected -Per chart review, multiple imaging reports have demonstrated a HADLOCK > 90% -Nursing Staff and Attending Physician notified 5. GBS Positive -s/p 4 doses of Penicillin G - most recent dose administered at ~0800 6. AMA -Progenity Screen (04/15/19): ZAIRE PCP: [facility] - Dr. Jocelyn Clay Dispo: Patient is currently stable on L&D in Active Labor, 2/2 mIOL for cHTN. Will allow patient to labor down for ~30M to reduce maternal pushing 2/2 ongoing COVID-19 precautions. Will initiate Mg Protocol and 2QH Neuro Checks at this time.
--- NOTE | 2019-09-26 10:39 | PDOC.OPDEL ---
OB Operative/Delivery Note Delivery Dr/Surgeon: Dr. Antonio Ricketts Assist: Dr. Jocelyn Clay Pre-Delivery Diagnosis: active labor, medically indicated induction (cHTN) Procedure/Post Delivery Dx: spontaneous vaginal delivery Weeks gestation: 38 (3) Anesthesia: epidural - Findings A Sex: male - 1 min: 8 - 5 min: 9 - Additional Findings/Plan Placenta delivered: spontaneous Repaired Obstetrical Laceration: 2nd degree (A 1 cm 2nd Degree Vaginal Laceration was noted at the 5 o'clock position.) Estimated blood loss: 150 ml Compilations/Other Findings: Delivering Physician: Dr. Antonio Ricketts Attending: Dr. Jocelyn Clay Procedure: Spontaneous Vaginal Delivery Anesthesia: Epidural QBL: 145 ml Pre-Op Diagnosis: 1. Term Intrauterine , Active Labor 2. cHTN 3. Group B Positive - Adequately Treated 4. LGA, suspected 5. AMA Post-op Diagnosis: 1. Term Intrauterine , Delivered 2. Same as Above Indications: A 43 y/o > who presented to L&D for mIOL for cHTN. Delivery Note: This is 43 y/o > female who delivered a TAGAM via at 1005 on 09/26/19. During the intrapartum course, the patient was administered empiric Penicillin G IV for GBS prophylaxis, with 4 doses administered prior to delivery. Additionally, the patient had multiple elevated SBPs ranging from the low 160s to the low 190s. Hydralazine 5 mg IV was administered x2 and Mg IV was administered with 4 g loading dose followed by 2 g IV infusion, as per protocol. A vigorous M was delivered over an intact perineum in the GURWINDER position. The anterior shoulder and then the remainder of the body were delivered without incident. No nuchal cord was noted. The head was held down and the mouth and nares were bulb suctioned. The cord was clamped and cut and cord blood was collected. The placenta delivered spontaneously and was found to have no tears or missing fragments. The cord was inspected and found to have 3 vessels. A fundal massage was performed and the fundus was firm. The cervix and vagina were inspected and a vaginal laceration was noted at the 5 o'clock position. The laceration was repaired using a 2-0 Vicryl suture in the usual fashion and hemostasis was achieved. The infant was sent to the Nursery in good condition for routine care. APGARs were noted to be 8/9 at 1 and 5 minutes, respectively. Patient tolerated delivery well and remained on L &D for subsequent monitoring of BP and Mg Protocol. Post delivery plan: recovery in LICU (per Mg Protocol) Addendum - Attending - Attending Attestation Date/Time: 09/26/19 1317 I was present, assisted and supervised the of a viable male over an intact perineum. Apgars 8/9. No nuchal cord. Shoulders and body delivered easily. 3V cord. Placenta delivered spontaneously and intact. Small left vaginal laceration repaired with 2-0 vicryl in usual fashion. Good hemostasis. CRX=742 mL Parminder Ricketts
--- NOTE | 2019-09-26 12:07 | PDOC.BPN ---
- Brief Progress Note 1200 Mg Check Subjective: Patient was resting comfortably in bed at the time of evaluation. Patient denied FLOYD, visual disturbances, or RUQ pain. No elevated BPs were noted over the past 60M and the Baires bag was full. Patient was counseled on the purpose of the medication and possible side-effects, such as flushing. Objective: Vitals: HR (75) BP (119/56) General: Patient appeared mildly flushed, but in no acute distress. Mental status appeared to be at baseline. HENT: NCAT. Pupils PERRLA with EOMI grossly intact. MMM with no uvular deviation. No rhinorrhea or epistaxis. No tracheal deviation or LAD. CV: RRR w/o M/C/G/R Resp: CTAB w/o W/R/Rh ABD: No RUQ pain noted : Baires bag full - will ensure bag change before next Neuro Check MSK: Strength and ROM grossly intact. Neuro: 2/4 Reflexes at the Brachioradialis and Patellar Tendons. No tremor or clonus noted. Assessment: 43 y/o > s/p following successful mIOL for cHTN, currently being treated via Mg Protocol for Pre-Eclampsia. Plan: Patient received Hydralazine 10 mg IV and Mg 4 g IV loading dose and subsequent 2 g infusion in the intrapartum period. No elevated BPs noted per strip. Physical exam unremarkable. Will continue Mg Protocol and Q2H Neuro Checks for Pre-Eclampsia.
[2019-09-26] MEDS ORDERED: Calcium Gluconate 4.6 MEQ in Sodium Chloride 0.9% 100 ML IVPB PRN (13:37)
[2019-09-26] MEDS ORDERED: NS / Oxytocin 40 units/1000ml 1,000 ML IV SCH (13:37)
[2019-09-26] MEDS ORDERED: Bisacodyl 10 MG SUPP PR PRN (13:37)
[2019-09-26] MEDS ORDERED: Milk Of Magnesia 30 ML UDCUP PO PRN (13:37)
[2019-09-26] MEDS ORDERED: Benzocaine-Menthol 82.5 ML CAN TOP PRN (13:37)
[2019-09-26] MEDS ORDERED: Preparation H Ointment 28 GM TUBE PR PRN (13:37)
[2019-09-26] MEDS ORDERED: Lanolin Ointment 7 GM TUBE TOP PRN (13:37)
[2019-09-26] MEDS ORDERED: diphenhydrAMINE 25 MG CAP PO PRN (13:37)
[2019-09-26] MEDS: Ibuprofen 800 MG TAB PO SCH (13:50)
--- NOTE | 2019-09-26 14:38 | PDOC.BPN ---
- Brief Progress Note 1430 Mg Check Subjective: Patient was resting comfortably in bed at the time of evaluation. Patient denied FLOYD, visual disturbances, or RUQ pain. No elevated BPs were noted over the past 120M. Objective: Vitals: HR (77) BP (113/62) General: Patient appeared well at the time of evaluation and in no acute distress. Mental status appeared to be at baseline. HENT: NCAT. Pupils PERRLA with EOMI grossly intact. MMM with no uvular deviation. No rhinorrhea or epistaxis. No tracheal deviation or LAD. CV: RRR w/o M/C/G/R Resp: CTAB w/o W/R/Rh ABD: No RUQ pain noted :225 ml of dark yellow urine in Baires bag. MSK: Strength and ROM grossly intact. Neuro: 2/4 Reflexes at the Brachioradialis and Patellar Tendons. No tremor or clonus noted. Assessment: 43 y/o > s/p following successful mIOL for cHTN, currently being treated via Mg Protocol for multiple severe-range pressures. Plan: Patient appears well at this time with no elevated BPs noted on strip since previous check. Physical exam unremarkable. Will continue Mg Protocol and Q2H Neuro Checks for cHTN with multiple severe-range pressures.
[2019-09-26] MEDS: Magnesium Sulfate 20 gm/500 ml 20 GM/500 ML BAG IVPB SCH (18:05)
[2019-09-26] MEDS ORDERED: Melatonin 3 MG TAB PO PRN (23:56)
--- NOTE | 2019-09-26 23:56 | PDOC.BPN ---
- Brief Progress Note Subjective: Patient was resting comfortably in bed at the time of evaluation. Patient denies visual disturbances or RUQ pain. She endorses FLOYD that is not relieved by ibuprofen with photophobia. Objective: Vitals: HR 70-80s BP 100-120s/50-70s General: No acute distress HENT: NCAT. EOMI intact. No rhinorrhea or epistaxis. CV: RRR w/o M/C/G/R Resp: CTAB w/o W/R/Rh ABD: No RUQ pain noted :60 cc/h MSK: Strength and ROM grossly intact. Neuro: 2/4 Reflexes at the Brachioradialis and Achilles Tendons. No tremor or clonus noted. Assessment: 43 y/o > s/p following successful mIOL for cHTN, currently being treated via Mg Protocol for multiple severe-range pressures. Plan: Patient appears well at this time with no elevated BPs noted. Physical exam unremarkable. Will continue Mg Protocol and Q4H Neuro Checks for cHTN with multiple severe-range pressures. Headache may be partially due to medication and lack of sleep. Will try melatonin.
[2019-09-27] MEDS: Magnesium Sulfate 20 gm/500 ml 20 GM/500 ML BAG IVPB SCH (04:05)
--- NOTE | 2019-09-27 04:39 | PDOC.BPN ---
- Brief Progress Note Subjective: Patient was resting comfortably in bed at the time of evaluation. Patient denies visual disturbances or RUQ pain. She endorses FLOYD that is not relieved by ibuprofen with photophobia but no scotoma that is 5/10. Objective: Vitals: HR 70-80s BP 100-120s/50-70s General: No acute distress HENT: NCAT. EOMI intact. No rhinorrhea or epistaxis. CV: RRR w/o M/C/G/R Resp: CTAB w/o W/R/Rh ABD: No RUQ pain noted : appropriate urine output MSK: Strength and ROM grossly intact. Neuro: 2/4 Reflexes at the Brachioradialis and Achilles Tendons. No tremor or clonus noted. Assessment: 43 y/o > s/p following successful mIOL for cHTN, currently being treated via Mg Protocol for multiple severe-range pressures. Plan: Patient appears well at this time with no elevated BPs noted. Physical exam unremarkable. Will continue Mg Protocol and Q4H Neuro Checks for cHTN with multiple severe-range pressures. Headache may be partially due to medication and lack of sleep. She has not had repeat dose recommended try tylenol again.
[2019-09-27] MEDS: Ferrous Sulfate 325 MG TAB PO SCH ×3 (06:18→14:11)
[2019-09-27] MEDS: Ibuprofen 800 MG TAB PO SCH ×4 (06:19→21:34)
[2019-09-27] MEDS: Docusate Calcium (SURFAK) 240 MG CAP PO SCH ×3 (06:19→21:34)
[2019-09-27] MEDS: Lactated Ringer's 1,000 ML IV SCH (06:25)
[2019-09-27] MEDS ORDERED: Adacel (T-DAP) 0.5 ML SYRINGE IM ONE (09:00)
[2019-09-27] MEDS ORDERED: Prenatal Vitamin 1 TAB PO SCH (09:00)
--- NOTE | 2019-09-27 09:50 | PDOC.PP ---
Post Progress Note Post Day #: 1 Subjective: Patient resting well this morning. She complains of mild frontal headache. PO intake tolerated: yes Flatus: no Ambulation: no Weight Weight 87.09 kg Reviewed, No abnormal blood pressures. - Physical Examination General: NAD Cardiovascular: no m/r/g, RRR Respiratory: clear to auscultation bilaterally, non-labored breathing Abdominal: + bowel sounds, lochia, no distention, appropriately TTP Neurological: no gross focal deficits (DTR 2+ bilaterally.) Psychiatric: A&Ox3, normal affect Result Diagrams: 09/26/19 03:22 09/26/19 03:22 Additional Labs: Post Labs Blood Type O POSITIVE 09/25/19 20:16 Hep Bs Antigen Non-Reactive S/CO (NonReactive) 09/25/19 20:16 (1) Elevated blood pressure affecting in third trimester, antepartum Code(s): O16.3 - UNSPECIFIED MATERNAL HYPERTENSION, THIRD TRIMESTER Status: Acute (2) Vaginal delivery Code(s): O80 - ENCOUNTER FOR FULL-TERM UNCOMPLICATED DELIVERY Status: Acute Comment: Patient doing well. Ambulating, eating well. Minimal pain. Minimal lochia. BPs have been elevated, but pre-e labs have been unremarkable. No severe range pressures. Continue to monitor. Possible d/c today. Consider BP check in one week at [facility] (3) Advanced maternal age (AMA), 40 years or greater Code(s): [id number] - Status: Chronic (4) Chronic hypertension Code(s): I10 - ESSENTIAL (PRIMARY) HYPERTENSION Status: Chronic - Assessment/Plan 1. PPD #1 - Routine PP care. - Ibuprofen for pain. - s/p 24hours of magnesium sulfate for elevated pressures. - 2nd degree laceration. Does not report pain, however she does still have paul catheter in. 2. Elevated pressure during 3T / intrapartum. - s/p 24 hours of mag. - Pressures have been normal. No elevated pressures in the last 24 hours. - Will monitor VS closely for next 24 hours. - h/o chronic HTN. Will need close follow up after discharge to monitor pressures. 3. GBS + - s/p treatment. Addendum - Attending - Attending Attestation Date/Time: 09/29/19 7405 I personally evaluated the patient and discussed the management with Dr. Bailey yesterday morning. I agree with the History, Examination, Assessment and Plan documented above with any addition or exceptions noted below.
[2019-09-27] MEDS ORDERED: Milk Of Magnesia 30 ML UDCUP PO PRN (12:20)
[2019-09-27] MEDS ORDERED: Lanolin Ointment 7 GM TUBE TOP PRN (12:20)
[2019-09-27] MEDS ORDERED: Benzocaine-Menthol 82.5 ML CAN TOP PRN (12:20)
[2019-09-27] MEDS ORDERED: Bisacodyl 10 MG SUPP PR PRN (12:20)
[2019-09-27] MEDS ORDERED: hydrALAZINE 20 MG/ML VIAL SLOW IVP PRN (12:20)
[2019-09-27] MEDS ORDERED: Ondansetron PF 4 MG/2 ML Vial IVP PRN (12:20)
[2019-09-27] MEDS: Penicillin G 2.5 MILL.units 2.5 MILL.UNITS in Premix Bag 1 BAG IVPB SCH (12:41)
[2019-09-28] MEDS: Ibuprofen 800 MG TAB PO SCH ×2 (05:30→13:18)
--- NOTE | 2019-09-28 06:55 | PDOC.PP ---
Post Progress Note Post Day #: 2 Subjective: Doing well this morning. PO intake tolerated: yes Flatus: yes Ambulation: no Vital Signs (12 hours) Temp Pulse Resp BP Pulse Ox 09/28/19 04:11 98.4 F 67 18 120/69 97 09/27/19 23:44 97.9 F 62 16 125/71 98 09/27/19 20:16 98.5 F 72 14 128/70 98 Weight Weight 87.09 kg - Physical Examination General: NAD Cardiovascular: no m/r/g, RRR Respiratory: clear to auscultation bilaterally, non-labored breathing Abdominal: + bowel sounds, lochia, no distention, appropriately TTP Neurological: no gross focal deficits Psychiatric: A&Ox3, normal affect Result Diagrams: 09/26/19 03:22 09/26/19 03:22 Additional Labs: Post Labs Blood Type O POSITIVE 09/25/19 20:16 Hep Bs Antigen Non-Reactive S/CO (NonReactive) 09/25/19 20:16 (1) Elevated blood pressure affecting in third trimester, antepartum Code(s): O16.3 - UNSPECIFIED MATERNAL HYPERTENSION, THIRD TRIMESTER Status: Acute (2) Vaginal delivery Code(s): O80 - ENCOUNTER FOR FULL-TERM UNCOMPLICATED DELIVERY Status: Acute Comment: Patient doing well. Ambulating, eating well. Minimal pain. Minimal lochia. BPs have been elevated, but pre-e labs have been unremarkable. No severe range pressures. Continue to monitor. Possible d/c today. Consider BP check in one week at [facility] (3) Advanced maternal age (AMA), 40 years or greater Code(s): [id number] - Status: Chronic (4) Chronic hypertension Code(s): I10 - ESSENTIAL (PRIMARY) HYPERTENSION Status: Chronic - Assessment/Plan 1. PPD #2 s/p - Routine PP care. - Ibuprofen for pain. - s/p 24hours of magnesium sulfate for elevated pressures. - 2nd degree laceration. 2. Elevated pressure during 3T / intrapartum. - s/p 24 hours of mag. - Pressures have been normal. No elevated pressures in the last 24 hours. - Recommend home monitoring of BP - h/o chronic HTN. Will need close follow up after discharge to monitor pressures. - Instructed patient to monitor BP daily and keep log. She is instructed to call clinic with pressures >140/90. She was not taking medication during her . Will f/u at [facility]. 3. GBS + - s/p treatment. Addendum - Attending - Attending Attestation Date/Time: 09/29/19 5013 I personally evaluated the patient and discussed the management with Dr. Bailey yesterday. I agree with the History, Examination, Assessment and Plan documented above with any addition or exceptions noted below.
[2019-09-28] MEDS ORDERED: Prenatal Vitamin 1 TAB PO SCH (09:00)
[2019-09-28] MEDS: Docusate Calcium (SURFAK) 240 MG CAP PO SCH (10:29)
[2019-09-28] MEDS: Ferrous Sulfate 325 MG TAB PO SCH (10:30)
[2019-09-28 11:34] VITALS: BP 139/77; TEMP 98.5
== END 2019-09-28 16:40 | disposition home or self-care (01) | DRG 807 ==
LOC: L&D 19:29 → 3SW 09-27 11:33
PROVIDERS: ADMIT Family Medicine; ATTEND Family Medicine
PROC: 10E0XZZ Delivery of Products of Conception, External Approach (ICD-10-PCS; principal; 2019-09-25)
PROC: 0KQM0ZZ Repair Perineum Muscle, Open Approach (ICD-10-PCS; 2019-09-25)
DX: O10.92 Unspecified pre-existing hypertension complicating childbirth (principal); Z37.0 Single live birth; O99.824 Streptococcus B carrier state complicating childbirth; Z3A.38 38 weeks gestation of pregnancy; O70.1 Second degree perineal laceration during delivery
CPT/HCPCS: 36415; 51702; 80053; 82570; 84156; 85025; 85027; 86780; 86850; 86900; 86901; 87340; 88307; J0360; J2540; J2590; J3475; J3490

== ENCOUNTER 2019-09-29 10:06 | Day surgery (SDC) | payer MEDICAID ==
--- NOTE | 2019-09-29 10:41 | PDOC.FPRHP ---
- History of Present Illness Chief Complaint: Elevated blood pressure History of Present Illness: Ms. Ashford is a 43 yo who delivered via on 09/26/2019, after a medical induction for chronic hypertension. During her intrapartum course she experienced several severe range pressures and was placed on magnesium sulfate IV infusion during her delivery and 24 hours . Her course was uncomplicated and her pressures remained normal for 24 hours after being off magnesium and she was discharged home with instructions to check her blood pressure daily. Last night her blood pressure was elevated and she had an 8/10 headache. Her headache did not significantly improve with Tylenol. This morning she still had a headache and at clinic her blood pressure was elevated to the 170s/80s so she was sent to the hospital for evaluation. At the present moment, her headache is a 3/10. She denies visual changes, paresthesias, muscle weakness, RUQ or epigastric pain , brisk vaginal bleeding, fever, or chills. - Allergies/Adverse Reactions Allergies Allergy/AdvReac Type Severity Reaction Status Date / Time No Known Allergies Allergy Verified 09/29/19 11:19 - Home Medications Medication Instructions Recorded Confirmed Type Ferrous Sulfate [Iron] 325 mg PO DAILY 09/13/19 09/29/19 History Docusate Calcium [Surfak] 240 mg PO BID #60 cap 09/28/19 09/29/19 Rx Lanolin Ointment [Lansinoh 2 gm TOP PRN PRN #1 tube 09/28/19 09/29/19 Rx Ointment] Vitamin 1 tab PO DAILY #30 tab 09/28/19 09/29/19 Rx NIFEdipine [Procardia Xl] 30 mg PO DAILY #30 tab.er.[id number] 09/29/19 Rx - History PMHx: Hypertension PSHx: None FHx: HTN Social: Denies alcohol, tobacco or illicit drug use. - Review of Systems General: reports: fatigue. denies: fever/chills, weight/appetite/sleep changes , night sweats Eyes: denies: eye pain, vision changes ENT: denies: nasal congestion, rhinorrhea Respiratory: denies: cough, congestion, shortness of breath Cardiovascular: denies: chest pain, palpitation, edema Gastrointestinal: denies: nausea, vomiting, diarrhea, constipation, abdominal pain Genitourinary: denies: incontinence, dysuria Skin: denies: rashes, lesions Musculoskeletal: denies: pain, tenderness, stiffness, swelling Neurological: denies: numbness, syncope, seizure, weakness Psychological: denies: anxiety, depression - Vital signs BP: 153/74, 141/78. Pulse: RR: 18 Weight 82kg - Physical Exam Constitutional: NAD, awake, alert and oriented, well developed HEENT: normocephalic and atraumatic, PERRLA, EOMI, conjunctiva clear, grossly normal vision, grossly normal hearing, MMM Neck: supple, FROM, trachea midline Heart: RRR, normal S1/S2, no murmurs/rubs/gallops Lungs: CTAB, no respiratory distress, good air movement, no rales/rhonchi, no wheezing Abdomen: soft, bowel sounds present -Abdomen: , appropriately tender to palpation Musculoskeletal: normal structure, normal tone Neurological: no focal deficit, CN II-XII intact, normal sensation, DTRs 2+ Skin: no rash/lesions, good turgor, capillary refill <2 seconds Heme/Lymphatic: no unusual bruising or bleeding, no purpura, no petechia FMR H&P: Results - Labs Result Diagrams: 09/29/19 11:37 09/29/19 11:37 FMR H&P: A/P - Problem List (1) Elevated blood pressure affecting in third trimester, antepartum Status: Acute Code(s): O16.3 - UNSPECIFIED MATERNAL HYPERTENSION, THIRD TRIMESTER (2) Advanced maternal age (AMA), 40 years or greater Status: Chronic Code(s): [id number] - (3) Chronic hypertension Status: Chronic Code(s): I10 - ESSENTIAL (PRIMARY) HYPERTENSION - Plan 1. Chronic HTN, elevated blood pressure intrapartum and . * BP noted to be 160-170 systolic in clinic, with persistent headache that did not resolve with OTC remedies. * Urine Pro:Cr, CMP, and CBC ordered. * BP checks q 15 minutes. 2. day 3 * Recovering well. Bottle feeding baby. UPDATE: Urine protein undetectable. Blood pressures remained below severe pressure range. Gave 1 dose of nifedipine and toradol for headache. Will discharge home with prescription for nifedipine and instruction to check BP twice daily and follow up in clinic. Addendum - Attending - Attending Attestation Date/Time: [id number] I personally evaluated the patient and discussed the management with Dr. Bailey yesterday. I agree with the History, Examination, Assessment and Plan documented above with any addition or exceptions noted below.
[2019-09-29] MEDS ORDERED: NIFEdipine XL 30 MG TAB PO SCH (11:15)
[2019-09-29 11:24] VITALS: BMI 29.9
[2019-09-29 11:48] LABS: #Lymphocytes 1.7 thou/uL (1.20-3.40); #Monocytes 0.2 thou/uL (0.11-0.59); #Neutrophils 3.1 thou/uL (1.40-6.50); %Basophils 0.4 % (0.0-1.0); %Eosinophils 0.6 % (0.0-10.0); %Lymphocytes 33.9 % (21.0-51.0); %Neutrophils 61.1 % (42.0-75.0); Hemoglobin 11.5 g/dL (12.0-16.0); Mean Corpuscular HGB CONC 34.8 g/dL (32.0-36.0); Mean Corpuscular Hemoglobin 32.7 pg (27.0-31.0); Mean Platelet Volume 7.3 fL (7.4-10.4); Platelet Count 159 thou/uL (130-400); RBC Distribution Width 12.2 % (11.5-14.5); Red Blood Cell (RBC) Count 3.51 mill/uL (4.20-5.40); White Blood Cell (WBC) Count 5.1 thou/uL (4.8-10.8)
[2019-09-29 11:51] LABS: Creatinine, Urine Less than 20.00 mg/dL (47-110); Protein, Urine Random Quant Less than 10 mg/dL (1-14)
[2019-09-29 12:11] LABS: ALT (SGPT) 14 U/L (8-55); AST (SGOT) 21 U/L (5-34); Albumin 3.4 g/dL (3.5-5.0); Alkaline Phosphatase 91 U/L (40-110); Anion Gap 11 mmol/L (10-20); BUN (Urea Nitrogen) 8 mg/dL (7.0-18.7); Bilirubin, Total 0.5 mg/dL (0.2-1.2); Calc. Creatinine Clearance 170 mL/min (70-130); Calcium 8.4 mg/dL (7.8-10.44); Carbon Dioxide 23 mmol/L (22-29); Chloride 109 mmol/L (98-107); Estimated GFR-MDRD Greater than 90; Globulin 3.3 g/dL (2.4-3.5); Glucose 74 mg/dL (70-105); Potassium 3.8 mmol/L (3.5-5.1); Protein, Total 6.7 g/dL (6.0-8.3); Sodium 139 mmol/L (136-145)
[2019-09-29] MEDS ORDERED: Ketorolac Tromethamine 30 MG/ML VIAL IM SCH (12:15)
[2019-09-29 13:15] VITALS: BP 160/86
== END 2019-09-29 13:20 | disposition home or self-care (01) ==
LOC: L&D/OP 10:06
PROVIDERS: ATTEND Family Medicine
DX: O10.93 Unspecified pre-existing hypertension complicating the puerperium (principal); Z79.899 Other long term (current) drug therapy
CPT/HCPCS: 36415; 51701; 80053; 82570; 84156; 85025; 96372; 99284; A4353; J1885